=== PATIENT | male | born 1945 | race Caucasian/White ===

== ENCOUNTER → 2019-01-06 | Outpatient (CLI) | payer MEDICARE ==
--- NOTE | 2019-01-06 11:48 | CARD ---
MR#: [id number] Date of Study: 01/06/2019 Ordering Physician: CORAZON GIVENS, Referring Physician: CORAZON GIVENS, Tech: Sara Cervantes APPROVED REPORT EXAM: Two-dimensional and M-mode echocardiogram with Doppler and color Doppler. Other Information Quality : FairHR: [id number] Technically limited study due to body habitus and CABG. INDICATION CAD 2D DIMENSIONS RVDd4.0 (2.9-3.5cm)Left Atrium(2D)4.4 (1.6-4.0cm) IVSd1.5 (0.7-1.1cm)Aortic Root(2D)3.9 (2.0-3.7cm) LVDd5.6 (3.9-5.9cm)LVOT Diameter2.2 (1.8-2.4cm) PWd1.3 (0.7-1.1cm)LVDs4.1 (2.5-4.0cm) FS (%) 26.8 %SV79.1 ml Aortic Valve AoV Peak Sidney.143.9cm/sAoV VTI33.8cm AO Peak GR.8.3mmHgLVOT Peak Sidney.84.7cm/s LVOT VTI 19.63cmAO Mean GR.5mmHg YAA (VMAX)1.55gu6FOV (VTI)2.13cm2 AI P 1/2 Xulq691mg Mitral Valve MV E Lrsgbmkw85.9cm/sMV DECEL [id number] MV A [place]73.6cm/sMV DIU77dj E/A Ratio1.0MVA (PHT)2.95cm2 TDI E/Lateral E'7.8E/Medial E'12.6 Pulmonary Valve PV Peak Sikbycbn169.9cm/sPV Peak Grad.4mmHg Tricuspid Valve TR P. Fktppiev716gz/sRAP QMTLOFAN2vrHe TR Peak Gr.50dmBgPZRX07ukCz Pulmonary Vein S1 Svaicmcs40.5cm/sD2 Mngymeqy83.3cm/s PVa [id number] LEFT VENTRICLE The left ventricle is normal size. There is mild concentric left ventricular hypertrophy. The left ve ntricular systolic function is normal. The ejection fraction is 55-60%. There is normal LV segmental wall motion. Transmitral Doppler flow pattern is Grade II-pseudonormal filling dynamics. RIGHT VENTRICLE The right ventricle is mildy dilated. There is normal right ventricular wall thickness. The right rosendo tricular systolic function is normal. ATRIA The left atrium size is normal. The right atrium size is normal. The interatrial septum is intact wit h no evidence for an atrial septal defect or patent foramen ovale as noted on 2-D or Doppler imaging. AORTIC VALVE The aortic valve is thickened but opens well. Doppler and Color Flow revealed mild aortic regurgitati on. There is no significant aortic valvular stenosis. MITRAL VALVE The mitral valve is normal in structure and function. There is no evidence of mitral valve prolapse. There is no mitral valve stenosis. Doppler and Color-flow revealed trace mitral regurgitation. TRICUSPID VALVE The tricuspid valve is not well visualized. Doppler and Color Flow revealed trace tricuspid regurgita tion with an estimated PAP of 26 mmHg. There is no tricuspid valve stenosis. PULMONIC VALVE The pulmonic valve is not well visualized. Doppler and Color Flow revealed trace pulmonic valvular re gurgitation. GREAT VESSELS The aortic root is normal in size. The IVC is normal in size and collapses >50% with inspiration. PERICARDIAL EFFUSION There is no evidence of significant pericardial effusion. Critical Notification Critical Value: No <Conclusion> The left ventricle is normal size. The left ventricular systolic function is normal. The ejection fraction is 55-60%. There is mild concentric left ventricular hypertrophy. There is no significant aortic valvular stenosis. Doppler and Color Flow revealed mild aortic regurgitation. Doppler and Color-flow revealed trace mitral regurgitation. Doppler and Color Flow revealed trace tricuspid regurgitation with an estimated PAP of 26 mmHg. Signed by : Corazon Givens MD Electronically Approved : 01/06/2019 11:47:50
== END | disposition home or self-care (01) ==
LOC: ECHO 08:06
PROVIDERS: ATTEND Internal Medicine Cardiovascular Disease
DX: I35.1 Nonrheumatic aortic (valve) insufficiency (principal); I25.10 Atherosclerotic heart disease of native coronary artery without angina pectoris
CPT/HCPCS: 93306